=== PATIENT | male | born 1970 | race Caucasian/White ===

== ENCOUNTER 2017-07-20 07:21 | Day surgery (SDC) | payer MEDICARE ==
[~2017-07-20 07:21] MED LIST: Acetaminophen/HYDROcodone 325-5 MG Tab PO PRN; Lactated Ringers 1,000 ML IV SCH; Morphine 2 MG/ML Syringe IVPUSH PRN; Ondansetron 4 MG/2 ML SDV IVPUSH PRN; Sodium Chloride 0.9% 10 ML Syringe FLUSH PRN
[2017-07-20] MEDS ORDERED: ceFAZolin 1 GM in Sodium Chloride 0.9% 50 ML IV SCH (08:00)
[2017-07-20] MEDS ORDERED: ceFAZolin 1 GM Vial ONE (09:49)
[2017-07-20] MEDS ORDERED: fentaNYL 250 MCG/5 ML SDV ONE (10:00)
[2017-07-20] MEDS ORDERED: Propofol 1,000 MG/100 ML SDV ONE (10:00)
[2017-07-20] MEDS ORDERED: Midazolam 1 MG/ML 5 ML SDV ONE ×3 (10:00)
--- NOTE | 2017-07-21 10:48 | OR ---
DATE OF OPERATION: 07/20/2017 MANUFACTURING ENGINEERING PROFESSOR: Irina Powell RN. PREOPERATIVE DIAGNOSIS: Right inguinal hernia. POSTOPERATIVE DIAGNOSIS: Right inguinal hernia. OPERATIVE PROCEDURE: Open right inguinal hernia repair with mesh. ESTIMATED BLOOD LOSS: 25 mL. COMPLICATIONS: None. INDICATION FOR THE PROCEDURE: The patient is a 47-year-old male, who has had right groin pain and right lump for the past several months, hurting with exertion. The patient has exam consistent with right inguinal hernia. The patient would like repaired. DESCRIPTION OF PROCEDURE: Informed consent was obtained from the patient. The patient was taken to the operative room, placed on table in supine position. The patient had received a spinal anesthesia. Groin was prepped and draped in sterile fashion. Skin overlying the right inguinal region was infiltrated with local anesthetic. Opening incision carried out with a 10 blade, dissected down through subcutaneous tissues with electrocautery. Then , encountered a superficial vein which was tied off with 3-0 Vicryl suture. Then dissected down through subcutaneous tissues down to the level of the external oblique fascia coming from the right external ring was obvious hernia sac. External oblique fascia opened with a 15 blade and divided with Metzenbaum scissors. Hernia sac was identified. Hernia sac was very large and contained omentum. Hernia sac and cord structures were come around with blunt dissection and elevated with Nereida drain. The hernia sac was entered bluntly and dissected away from the cord structures as well as using electrocautery. Hernia sac containing fat was then reduced. Hernia sac taken down to the level of the internal ring. Cord lipoma was also excised. Indirect hernia was then had a large mesh plug placed within the internal ring and sutured in place with 2-0 Prolene suture. Mesh patch was then sutured in place to the inguinal floor from the pubic tubercle first along the inferior edge of the iliopubic tract and then superior edge was sutured to the transversalis fascia with 2-0 Prolene in similar fashion. Tails were wrapped around the cord structures. Recreating the internal ring. The tails were also tucked under the external oblique fascia. Testicle was found to be in good position. The external oblique fascia was then closed with 2-0 Vicryl suture creating a new external ring. Wound was irrigated and dried. No active bleeding was seen. The Mahogany layer was closed with 3-0 Vicryl, deep dermal layer was closed with 3-0 Vicryl, skin was closed with 4-0 Monocryl in running subcuticular fashion. At the end the case, all sponge, needle, and instrument counts were correct. The patient tolerated procedure well, was brought to recovery room in good condition. SARBJIT /[id number] MTDD
== END 2017-07-20 17:00 | disposition home or self-care (01) ==
LOC: LB.SDS 07:21
PROVIDERS: ATTEND Surgery
DX: K40.90 Unilateral inguinal hernia, without obstruction or gangrene, not specified as recurrent (principal); Z79.899 Other long term (current) drug therapy
CPT/HCPCS: 49505; A9270; C1781; J0690; J2250; J3010; J7120; 92960; J3490

== ENCOUNTER 2018-12-26 19:45 | Emergency (ER) | payer MEDICARE ==
[2018-12-26] MEDS ORDERED: Acetaminophen/HYDROcodone 325-5 MG Tab ONE (19:50)
[2018-12-26] MEDS ORDERED: GI Cocktail Oral Solution 30 ML ONE (20:00)
[2018-12-26] MEDS ORDERED: Aspirin 81 MG Tab.Chew ONE (20:00)
[2018-12-26] MEDS: Sodium Chloride 0.9% 10 ML Syringe FLUSH PRN (20:10)
[2018-12-26] MEDS: Morphine 2 MG/ML Syringe IVPUSH ONE (20:11)
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
[2018-12-26] MEDS: HYDROmorphone 2 MG/ML Syringe IVPUSH ONE (20:28)
[2018-12-26] MEDS: Pantoprazole 40 MG Vial IVPUSH ONE (23:19)
--- NOTE | 2018-12-27 07:27 | CR ---
DATE OF SERVICE: 12/26/18 CLINICAL DATA: chest pain AP PORTABLE CHEST: No priors. The heart size is normal. The lungs are clear. No pneumothorax. No pleural effusions. No evidence of acute intrathoracic disease. [id number] MTDD
--- NOTE | 2018-12-27 10:41 | CT ---
DATE OF SERVICE: 12/26/18 CLINICAL DATA: Epigastric pain. UNENHANCED ABDOMEN AND PELVIC CT: Multislice acquisition through the abdomen and pelvis without IV or oral contrast was performed. No priors. There are mild atelectatic changes of the dependent portions of both lower lungs , right greater than left. The lung base is otherwise clear. The unenhanced liver appears normal. No focal hepatic lesions. The gallbladder is mildly distended. There are multiple gallstones noted within the gallbladder. No pericholecystic fluid. No biliary duct dilatation. The spleen appears normal. The pancreas appears normal. The right and left adrenals appear normal. The right and left kidneys appear normal. No nephrocalcinosis or nephrolithiasis. No hydronephrosis or hydroureter. The bladder is fluid filled and appears normal. The prostate is mildly enlarged. The appendix is not dilated. No evidence of appendicitis. There is mild diverticulosis of the colon. No evidence of diverticulitis. No free air. No free fluid. No dilated loops of bowel. No adenopathy. No aortic aneurysm. There is a small umbilical hernia containing fat. There are bilateral inguinal hernias containing fat, left greater than right. There is degenerative disk disease at multiple levels in the thoracic and lumbar spine. IMPRESSION: Cholelithiasis. Other findings as discussed above. [id number] [facility]
== END 2018-12-26 22:00 | disposition home or self-care (01) ==
LOC: LB.ED 19:45
DX: K80.20 Calculus of gallbladder without cholecystitis without obstruction (principal)
CPT/HCPCS: 36415; 71045; 74176; 80053; 80307; 83690; 84484; 85025; 85379; 85610; 85730; 93005; 96374; 96375; 99285-25; A9270-GY; J1170; J2270; J7030

== ENCOUNTER 2021-05-13 22:07 | Emergency (ER) | payer MEDICARE ==
[2021-05-13] MEDS ORDERED: Sodium Chloride 0.9% 10 ML Syringe FLUSH PRN (22:22)
[2021-05-13] MEDS ORDERED: Ketorolac 30 MG/ML SDV IVPUSH ONE (22:23)
[2021-05-13] MEDS ORDERED: Ketorolac 60 MG/2 ML SDV IM ONE (22:30)
[2021-05-13] MEDS ORDERED: Acetaminophen/HYDROcodone 325-5 MG Tab ONE (23:55)
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
--- NOTE | 2021-05-16 12:41 | CT ---
Date of Service: 05/13/21 Clinical Data: abd pain UNENHANCED ABDOMEN AND PELVIC CT: Multislice acquisition through the abdomen and pelvis without IV or oral contrast was performed. Comparison is made to a prior exam dated 12/26/18. Thee are mild atelectatic changes in both lung bases. The lung bases are otherwise clear. The heart size is normal. The unenhanced liver appears normal. The gallbladder is distended. There are multiple gallstones noted within the gallbladder. The gallbladder wall also appears to be thickened suggesting the possibility of cholecystitis. No pericholecystic fluid. No biliary duct dilatation. The spleen appears normal. The pancreas appears normal. The right and left adrenals appear normal. The right and left kidneys appear normal. No nephrocalcinosis or nephrolithiasis No hydronephrosis or hydroureter. The bladder is partially fluid filled. It appears normal. There is mild diverticulosis of the descending and sigmoid colon. No evidence of diverticulitis. No free air. No free fluid. No dilated loops of bowel. No adenopathy. No aortic aneurysm. There is a linear gas collection posterior to the right gluteus aletha muscle most likely related to a prior injection. IMPRESSION: Cholelithiasis. Mild gallbladder all distention with mild gallbladder wall thickening. Cholecystitis is suspected. The patient's physician was notified of the findings by telephone and by [facility] preliminary radiology report. [id number] MTDD
== END 2021-05-14 00:30 | disposition home or self-care (01) ==
LOC: LB.ED 22:19
DX: R10.9 Unspecified abdominal pain (principal)
CPT/HCPCS: 36415; 74176; 80053; 81001; 85025; 96372; 99284; A9270; J1885; 81003

== ENCOUNTER 2021-05-14 15:21 | Emergency (ER) | payer BC, MEDICARE ==
[2021-05-14] MEDS ORDERED: Ketorolac 60 MG/2 ML SDV IM ONE (15:49)
[2021-05-14] MEDS ORDERED: Ketorolac 60 MG/2 ML SDV ONE (15:58)
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
== END 2021-05-14 16:40 | disposition home or self-care (01) ==
LOC: LB.ED 15:21
DX: R10.12 Left upper quadrant pain (principal); R10.32 Left lower quadrant pain; Z72.0 Tobacco use
CPT/HCPCS: 96372; 99283; J1885

== ENCOUNTER 2024-11-21 10:39 | Day surgery (SDC) | payer MEDICARE ==
[~2024-11-21 10:39] MED LIST changes: -Acetaminophen/HYDROcodone 325-5 MG Tab PO PRN; -Lactated Ringers 1,000 ML IV SCH; +Metoclopramide 10 MG/2 ML SDV IV PRN; -Morphine 2 MG/ML Syringe IVPUSH PRN; -Ondansetron 4 MG/2 ML SDV IVPUSH PRN; -Sodium Chloride 0.9% 10 ML Syringe FLUSH PRN
[2024-11-21] MEDS: Sodium Chloride 0.9% 1,000 ML IV SCH (11:13)
[2024-11-21] MEDS ORDERED: Propofol 500 MG/50 ML SDV ONE (11:35)
== END 2024-11-21 12:28 | disposition home or self-care (01) ==
LOC: LB.SDS 10:39
PROVIDERS: ATTEND Surgery
DX: Z12.11 Encounter for screening for malignant neoplasm of colon (principal); D12.6 Benign neoplasm of colon, unspecified; E78.5 Hyperlipidemia, unspecified
CPT/HCPCS: 45385; 88305; J2704; J7030